=== PATIENT | male | born 2000 ===

== ENCOUNTER 2018-12-03 18:31 | Emergency (ER) | payer OTHER ==
[2018-12-03 18:36] VITALS: BMI 16.0
[2018-12-03 18:39] VITALS: PULSE 86; O2SAT 99
--- NOTE | 2018-12-03 19:02 | C.PDOC ---
History Of Present Illness 18 yr old male w/ no ppmhx p/w epigastric and ruq pain that started yesterday, 4 hours after eating fries and fried chicken yesterday. He notes an intermittent RUQ pain, described as sharp stabbing, without radiation, first time occurence. One episode of nbnb vomiting yesterday without any fever, chills or night sweats. No complaints. No urinary complaints. No constipation or diarrhea. No dark or bloody stool. No fall or trauma. Pt notes taking pepto bismol x1 last night without much relief. He notes drinking one beer around dinner time last night. No back pain. No other complaints. Time Seen by Provider: 12/03/18 19:01 Chief Complaint (Nursing): Abdominal Pain Past Medical History Vital Signs: Last Vital Signs Temp 97.7 F 12/03/18 18:37 Pulse 86 12/03/18 18:37 Resp 18 12/03/18 18:37 BP 106/67 12/03/18 18:37 Pulse Ox 99 12/03/18 18:37 Primary Care Provider: Carey Mars Family History: States: Unknown Family Hx - Social History Hx Alcohol Use: Yes Hx Substance Use: No - Immunization History Hx Tetanus Toxoid Vaccination: No Hx Influenza Vaccination: No Hx Pneumococcal Vaccination: No Review Of Systems Constitutional: Negative for: Fever, Chills, Weakness, Malaise Eyes: Negative for: Pain, Vision Change ENT: Negative for: Ear Pain, Ear Discharge, Nose Pain, Nose Congestion, Mouth Pain, Mouth Swelling Cardiovascular: Negative for: Chest Pain, Palpitations, Orthopnea Respiratory: Negative for: Cough, Shortness of Breath, SOB with Excertion, Pleuritic Pain Gastrointestinal: Positive for: Abdominal Pain. Negative for: Nausea, Vomiting, Constipation, Melena, Hematochezia, Hematemesis Genitourinary: Negative for: Dysuria, Frequency, Incontinence, Penile Discharge, Scrotal Pain, Penile Pain Musculoskeletal: Negative for: Neck Pain, Shoulder Pain Skin: Negative for: Rash, Lesions, Jaundice Neurological: Negative for: Weakness, Numbness, Confusion, Headache Psych: Negative for: Anxiety Physical Exam - Physical Exam Appears: Well, Non-toxic, No Acute Distress Skin: Normal Color, Warm, Dry Head: Atraumatic, Normacephalic Eye(s): bilateral: Normal Inspection, PERRL, EOMI Ear(s): Bilateral: Normal Nose: Normal Oral Mucosa: Moist Throat: Normal, No Erythema, No Exudate, No Drooling, No Mass Neck: Normal, Normal ROM, No Midline Cervical Tenderness, No Paracervical Tenderness, No Step Off Deformity, Supple (no meningeal signs) Lymphatic: Normal Exam, No Adenopathy Cardiovascular: Rhythm Regular Respiratory: Normal Breath Sounds Gastrointestinal/Abdominal: Soft, Tenderness (ruq, no sonographic murphys), No Mass, No Distention, No Guarding, No Hernia, Other (no rlq pain or back pain. no llq or suprapubic pain. ) Back: Normal Inspection, No CVA Tenderness, No Vertebral Tenderness Extremity: Normal ROM, No Tenderness, No Swelling Extremity: Bilateral: Atraumatic Neurological/Psych: Oriented x3, Normal Speech, Normal Cognition, Normal Cranial Nerves, No Cerebellar Signs Gait: Steady ED Course And Treatment - Laboratory Results Result Diagrams: 12/03/18 19:17 12/03/18 19:17 O2 Sat by Pulse Oximetry: 99 Medical Decision Making Medical Decision Makin yr old male w/ no ppmhx p/w abdominal pain, ruq, without radiation. No RLQ pain. No peritoneal signs. No guarding. Mildly ttp to RUQ. No N/V currently. Likely gastritis given negative murhpys, but will seek imaging and labs. No radiation or pain to back. No complaints. Pending imaging and labs 2011 pt in NAD labs largely unremarkble mildly elevated LFTS. pending US 2113 repeat abd exam fully non-ttp without rebound or guarding no n/v pt notes pain fully resolved likely gastritis US w/ GB polyp: endorsed need to f/u w/ GI. Pt states he will. clear for d/c home with return indications and f/u pt agreeable to plan. Disposition - Disposition Referrals: Lilly Sharif MD [Staff Provider] - [facility] [Outside] [facility] [Outside] [facility] [Outside] Disposition Time: 21:10 Condition: STABLE Additional Instructions: YOU HAVE GASTRITIS. TRY TO EAT A SIMPLE DIET OF BANANAS RICE APPLES AND TOAST UNTIL YOU FEEL BETTER. THERE WAS AN INDICDENTAL FINDING OF A POLYP IN YOUR GALLBLADDER TODAY WELL: IT IS OF NO EMERGENCY RIGHT NOW BUT YOU NEED TO SEE A STOMACH DOCTOR (DR SHARIF) FOR OUTPATIENT FOLLOWUP LIN MUIR, thank you for letting us take care of you today. Your provider was Ankur Choi and you were treated for ABD PAIN/VOMITTING. The emergency medical ca re you received today was directed at your acute symptoms. If you were prescribed any medication, please fill it and take as directed. It may take several days for your symptoms to resolve. Return to the Emergency Department if your symptoms worsen, do not improve, or if you have any other problems. Please contact your doctor or call one of the physicians/clinics you have been referred to that are listed on the Patient Visit Information form that is included in your discharge packet. Bring any paperwork you were given at discharge with you along with any medications you are taking to your follow up visit. Our treatment cannot replace ongoing medical care by a primary care provider outside of the emergency department. Thank you for allowing the [facility] team to be part of your care today. If you had an X-Ray or CT scan: A Radiologist will review the ED reading if any change in treatment is needed we will contact you. If you had a blood, urine, or wound culture: It will take several days for the results, if any change in treatment is needed we will contact you. If you had an STI test: It will take 48 hours for the results. Please call after 1 week if you have not heard back. Prescriptions: Famotidine [Pepcid] 20 mg PO Q12H PRN 3 Days #6 tab PRN Reason: Dyspepsia Instructions: Gastritis (DC) Forms: [employer] ([place]e) - Clinical Impression Clinical Impression: Gastritis, Gallbladder polyp
[2018-12-03] MEDS ORDERED: Simethicone 80 mg Chewtab PO STA (19:04)
[2018-12-03] MEDS ORDERED: Sodium Chloride 0.9% 1,000 ML IV ONE (19:04)
[2018-12-03] MEDS ORDERED: Sodium Chloride 0.9% 1,000 ML ONE (19:13)
[2018-12-03 19:19] LABS: BASO % 0.6 % (0.0-2.0); EOS # 0.2 K/uL (0.0-0.7); EOS % 3.8 % (0.0-4.0); HEMOGLOBIN 14.9 g/dL (12.0-18.0); LYMPH # 1.9 K/uL (1.0-4.3); LYMPH % 34.2 % (20.0-40.0); MEAN CELL VOLUME 95.1 fL (80.0-94.0); MEAN CORPUSCULAR HEMOGLOBIN 32.6 pg (27.0-31.0); MEAN CORPUSCULAR HGB CONC 34.3 g/dL (33.0-37.0); MEAN PLATELET VOLUME 9.4 fL (7.2-11.7); MONO # 0.5 K/uL (0.0-0.8); MONO % 9.6 % (0.0-10.0); NEUT # 2.9 K/uL (1.8-7.0); NEUT % 51.8 % (50.0-75.0); NRBC % 0.2 % (0.0-2.0); RBC 4.56 Mil/uL (4.40-5.90); WHITE BLOOD COUNT 5.5 K/uL (4.8-10.8)
[2018-12-03 19:41] LABS: ALB/GLOB RATIO 1.6 (1.0-2.1); ALBUMIN 4.5 g/dL (3.5-5.0); ALT/SGPT 11 U/L (21-72); AST/SGOT 62 U/L (17-59); BLOOD UREA NITROGEN 12 mg/dL (9-20); CALCIUM 9.6 mg/dl (8.6-10.4); GFR NON-AFRICAN AMERICAN > 60; LIPASE 62 U/L (23-300)
[2018-12-03 21:20] VITALS: BP 117/81; RESP 16; TEMP 98.1
--- NOTE | 2018-12-04 08:35 | US ---
Right upper quadrant abdominal ultrasound HISTORY: Right upper quadrant abdominal pain. COMPARISON: None available. TECHNIQUE: Real-time sonography was performed through the right upper quadrant of the abdomen. FINDINGS: Liver: 16.3 centimeters in length. Normal echogenicity. Gallbladder: No gross calculi or sludge. 3 x 2 x 2 millimeter nonmobile nonshadowing echogenic foci at the gallbladder wall which may represent a polyp. Normal wall thickness of 2 millimeters. No gross wall edema. Negative sonographic Greco's sign. Common bile duct measures 3 millimeters, within normal limits. Limited visualization of the pancreas. Visualized aorta and IVC are preserved. Right kidney: 9.9 x 3.5 x 4.5 centimeters. No calculi or hydronephrosis. IMPRESSION: 3 x 2 x 2 millimeter nonmobile nonshadowing echogenic foci at the level of the gallbladder wall suggestive for a polyp. No gross calculi. Normal wall thickness of 2 millimeters. Negative sonographic Greco's sign. Limited visualization of the pancreas. A preliminary report was generated at 9:01 p.m. on 12/03/[address] Caleb Chase from [employer].
== END 2018-12-03 21:20 | disposition home or self-care (01) ==
LOC: C.ER 18:31
DX: K29.70 Gastritis, unspecified, without bleeding (principal); K82.4 Cholesterolosis of gallbladder
CPT/HCPCS: 76705; 80053; 83690; 85025; 96361; 96374; 99284; J7030